=== PATIENT | female | born 1945 | race Caucasian/White ===

== ENCOUNTER 2021-12-19 05:25 | Day surgery (SDC) | payer OTHER, SELFPAY ==
[~2021-12-19] VITALS: Ht 162.6 cm; Wt 118.4 kg
[2021-12-19] MEDS ORDERED: ONDANSETRON HCL 4 MG/2 ML VIAL IVP PRN (07:30)
[2021-12-19] MEDS ORDERED: LR 1,000 ML IV SCH (07:30)
[2021-12-19] MEDS ORDERED: SIMETHICONE 40 MG/0.6 ML ML ONE (07:56)
[2021-12-19] MEDS ORDERED: fentaNYL CITRATE/PF 100 MCG/2 ML AMP ONE (11:00)
[2021-12-19] MEDS ORDERED: PROPOFOL 200MG/ 20ML VIAL (DIPRIVAN) IV ONE (11:00)
[2021-12-19 12:28] VITALS: BP_SYST 133
== END 2021-12-19 12:28 | disposition home or self-care (01) ==
LOC: SMU 05:25 → SDS 05:25
PROVIDERS: ATTEND Internal Medicine
DX: R19.5 Other fecal abnormalities (principal); D12.4 Benign neoplasm of descending colon; K57.30 Diverticulosis of large intestine without perforation or abscess without bleeding; K52.9 Noninfective gastroenteritis and colitis, unspecified; K64.8 Other hemorrhoids; E11.9 Type 2 diabetes mellitus without complications; I10 Essential (primary) hypertension; Z20.822 Contact with and (suspected) exposure to COVID-19; Z79.899 Other long term (current) drug therapy
CPT/HCPCS: 36415; 45380; 45385; 82962; 87426; 88305; 93005; 96365; G0378; J2704; J3010

== ENCOUNTER → 2021-12-27 | Outpatient (CLI) | payer OTHER, SELFPAY ==
[~2021-12-27] VITALS: Ht 162.6 cm; Wt 117.9 kg
== END | disposition home or self-care (01) ==
LOC: SLB 10:00 → EDSTATUS 12-31 10:45
PROVIDERS: ATTEND Colon & Rectal Surgery
DX: Z01.812 Encounter for preprocedural laboratory examination (principal); Z20.822 Contact with and (suspected) exposure to COVID-19; D05.10 Intraductal carcinoma in situ of unspecified breast
CPT/HCPCS: U0003

== ENCOUNTER 2022-05-31 10:37 | Inpatient (IN) | payer OTHER ==
[~2022-05-31] VITALS: Ht 162.6 cm; Wt 108.9 kg
[2022-05-31 11:48] VITALS: BP_SYST 126
--- NOTE | 2022-05-31 11:56 | NUR ---
BIB FAMILY WITH C/C OF ABNORMAL LAB VALUES. PT SENT OVER FROM DR. DE ANDA'S OFFICE, BUT HAS NO DOCUMENT OF WHAT LAB. HX OF RENAL DISEASE STG 4, NOT ON HD. REPORTS ABDOMINAL PAIN 10/10 WORSE WITH EATING. DENIES ANY NAUSEA. PLACED IN BED 7. INFORMED DR. DEAL.
[2022-05-31 13:15] LABS: BASOPHILS % (AUTO) 0.6 % (0.0-2.0); EOSINOPHILS # (AUTO) 0.1 K/uL (0.0-0.4); EOSINOPHILS % (AUTO) 1.4 % (0.0-4.0); HEMATOCRIT 22.1 % (36-48); HEMOGLOBIN 7.1 g/dL (12.0-16.0); LYMPHOCYTES # (AUTO) 0.9 K/uL (1.0-5.5); LYMPHOCYTES % (AUTO) 11.4 % (20.5-51.5); MEAN CORPUSCULAR HEMOGLOBIN 26 pg (27-31); MEAN CORPUSCULAR HGB CONC 32 % (32-36); MEAN CORPUSCULAR VOLUME 81 fL (79.0-98.0); MONOCYTES # (AUTO) 0.5 K/uL (0.0-1.0); MONOCYTES % (AUTO) 6.9 % (1.7-9.3); NEUTROPHILS % (AUTO) 79.7 % (40.0-70.0); PLATELET COUNT (AUTO) 170 K/uL (130-430); RED BLOOD CELL COUNT(AUTO) 2.74 MIL/uL (4.2-6.2); RED CELL DISTRIBUTION WIDTH 17.3 % (9.0-15.0); WHITE BLOOD COUNT (AUTO) 7.5 K/uL (4.8-10.8)
[2022-05-31 13:45] LABS: ANION GAP 11 (5-15); CALCIUM 8.8 mg/dL (8.4-11.0); CHLORIDE 107 mmol/L (98-107); GLUCOSE 163 mg/dL (70-99); POTASSIUM 5.2 mmol/L (3.5-5.1); SODIUM SERUM 138 mmol/L (136-145); UREA NITROGEN, BLOOD 70 mg/dL (8-21)
[2022-05-31 13:51] LABS: ALANINE AMINOTRANSFERASE 34 U/L (12-78); ALBUMIN 2.6 g/dL (3.4-4.8); ASPARTATE AMINOTRANSFERASE 31 U/L (10-37); TOTAL BILIRUBIN 0.4 mg/dL (0.0-1.0)
[2022-05-31 13:59] LABS: INR 1.1 (0.8-1.2); PROTHROMBIN TIME 11.4 SECS (9.5-12.5)
[2022-05-31 16:59] LABS: LIPASE 119 U/L (73-393)
[2022-05-31] MEDS ORDERED: MORPHINE 2 MG/ML INJ. SYRINGE IVP ONE (17:15)
[2022-05-31] MEDS ORDERED: AMIO100T4 PO (17:32)
[2022-05-31] MEDS ORDERED: APIX5TAB PO (17:32)
[2022-05-31] MEDS ORDERED: BUME1TAB8 PO (17:32)
[2022-05-31] MEDS ORDERED: POTA8TAB66 PO (17:32)
[2022-05-31] MEDS ORDERED: AMIO200T66 PO (17:38)
[2022-05-31] MEDS ORDERED: LOSA100T23 PO (17:38)
[2022-05-31] MEDS ORDERED: LEVO75CA5 PO (17:38)
[2022-05-31] MEDS ORDERED: FUROSEMIDE 40 MG/4 ML VIAL IVP ONE ×2 (17:45→18:00)
--- NOTE | 2022-05-31 18:24 | NUR ---
Gave pt. Cardio Diet tray for dinner.
[2022-05-31] MEDS ORDERED: MORPHINE 4 MG INJ. 4 MG/ML VIAL IVP ONE (18:45)
--- NOTE | 2022-05-31 19:34 | NUR ---
PT ENDORSED TO TONI MEDEIROS. ALL QUESTIONS AND CONCERNS ADDRESSED. INFORMED HER PT HAS ONE UNIT PRBC ORDERED TO GIVE.
[2022-05-31] MEDS ORDERED: BACI1CAP PO (20:03)
[2022-05-31] MEDS ORDERED: ALPR1TAB2 PO (20:03)
[2022-05-31] MEDS ORDERED: GLIP10TA11 PO (20:03)
[2022-05-31] MEDS ORDERED: [UNRECOGNIZED DRUG - CODE] PO (20:03)
--- NOTE | 2022-05-31 20:35 | NUR ---
Recieved patient . Vital signs : BP: 163/71. SaO2: 95% . RR:19. HR: 86. Temp: 97 . Awake, Alert and oriented x4.Daughter is at bedside. Patient is awaiting blood transfusion and admission.
--- NOTE | 2022-05-31 22:25 | NUR ---
pt is a new admit from the ED. admitted to the tele unit for fluid overload and anemia. pt arrived to the unit alert, awake and stable with daughter at bedside. 1 unit of PRBC's was transfusion while pt arrive to the unit. pt has no s/s of reaction from the transfusion at this time. vitals taken b/p 144/77 hr 86 resp 19 temp 97.8 02 97% RA. PT HAS NO C/O pain or distress noted at this time. educate pt to room and how to use call light. bed alarm on and place bed to lowest position.
--- NOTE | 2022-05-31 22:47 | NUR ---
Patient given written and verbal discharge instructions and verbalizes understanding. ER MD discussed with patient the results and treatment provided. Patient in stable condition. . IV catheter removed intact and dressing applied, no active bleeding. Rx of given. Patient educated on pain management and to follow up with PMD. Pain Scale . PT CURRENTLY ON 1 UNIT PRBC TRANSFUSION. Opportunity for questions provided and answered. Medication side effect fact sheet provided. REPORT GIVEN TO DENIS
[2022-05-31] MEDS: MORPHINE 4 MG INJ. 4 MG/ML VIAL IVP PRN (23:46)
[2022-06-01 00:26] VITALS: BP_SYST 144
[2022-06-01] MEDS ORDERED: IBUPROFEN PO SCH (01:15)
[2022-06-01] MEDS ORDERED: HYDROCODONE PO SCH (01:15)
[2022-06-01] MEDS ORDERED: ALPRAZolam 0.25 MG TABLET PO SCH (01:15)
--- NOTE | 2022-06-01 01:19 | NUR ---
1st unit of prbcs completed pt tolerated transfusion well. no s/s of any reaction noted at this time. vitals within normal limits.
[2022-06-01] MEDS: MORPHINE 4 MG INJ. 4 MG/ML VIAL IVP PRN ×5 (04:15→23:11)
[2022-06-01 07:00] VITALS: BP_SYST 166
[2022-06-01 08:00] VITALS: BP_SYST 166
[2022-06-01] MEDS: BUMETANIDE 1 MG TABLET PO SCH (08:31)
[2022-06-01] MEDS: POTASSIUM CHLORIDE 8 MEQ TABLET.SA PO SCH (08:41)
[2022-06-01] MEDS ORDERED: AMIODARONE HCL 200 MG TABLET PO SCH (09:00)
[2022-06-01 09:07] LABS: ANION GAP 11 (5-15); CALCIUM 8.8 mg/dL (8.4-11.0); CHLORIDE 107 mmol/L (98-107); GLUCOSE 130 mg/dL (70-99); POTASSIUM 4.7 mmol/L (3.5-5.1); SODIUM SERUM 140 mmol/L (136-145); UREA NITROGEN, BLOOD 67 mg/dL (8-21)
[2022-06-01 09:08] LABS: BASOPHILS % (AUTO) 0.3 % (0.0-2.0); EOSINOPHILS # (AUTO) 0.1 K/uL (0.0-0.4); EOSINOPHILS % (AUTO) 1.5 % (0.0-4.0); HEMATOCRIT 27.8 % (36-48); HEMOGLOBIN 9.2 g/dL (12.0-16.0); LYMPHOCYTES # (AUTO) 0.9 K/uL (1.0-5.5); LYMPHOCYTES % (AUTO) 9.7 % (20.5-51.5); MEAN CORPUSCULAR HEMOGLOBIN 27 pg (27-31); MEAN CORPUSCULAR HGB CONC 33 % (32-36); MEAN CORPUSCULAR VOLUME 82 fL (79.0-98.0); MONOCYTES # (AUTO) 0.6 K/uL (0.0-1.0); MONOCYTES % (AUTO) 6.7 % (1.7-9.3); NEUTROPHILS # (AUTO) 7.4 K/uL (1.8-7.7); NEUTROPHILS % (AUTO) 81.8 % (40.0-70.0); PLATELET COUNT (AUTO) 180 K/uL (130-430); RED BLOOD CELL COUNT(AUTO) 3.38 MIL/uL (4.2-6.2); RED CELL DISTRIBUTION WIDTH 16.4 % (9.0-15.0)
[2022-06-01 09:13] LABS: ALANINE AMINOTRANSFERASE 35 U/L (12-78); ALBUMIN 2.9 g/dL (3.4-4.8); ASPARTATE AMINOTRANSFERASE 36 U/L (10-37); TOTAL BILIRUBIN 0.5 mg/dL (0.0-1.0)
--- NOTE | 2022-06-01 11:24 | NUR ---
CONSULTATION PAGED REASON FOR CONSULTATION PANCREATIC MASS WAS CONSULT CALED?Y PERSON WHO WAS NOTIFIED:SERA CONSULTING PHYSICIAN:KAMRAN GARCIA FISCAL ACCOUNTANT SPECIALTY:GI FISCAL ACCOUNTANT PHONE NUMBER:[phone] REQUESTING PHYSICIAN:CORTEZ GAN
--- NOTE | 2022-06-01 11:27 | NUR ---
CONSULTATION PAGED REASON FOR CONSULTATION PANCREATIC MASS WAS CONSULT CALED?Y PERSON WHO WAS NOTIFIED:JANUARY CONSULTING PHYSICIAN:LY SCHAEFFER TRACK LABORER SPECIALTY:HEMATOLOGY/COSTUME DESIGN TEACHER PHONE NUMBER:[phone] REQUESTING PHYSICIAN:CORTEZ GAN
[2022-06-01] MEDS: NACL 0.9% 1,000 ML IV SCH (11:45)
[2022-06-01 12:00] VITALS: BP_SYST 122
[2022-06-01] MEDS ORDERED: LACTOBACILLUS RHAMNOSUS GG 1 CAP CAPSULE PO ONE (13:15)
[2022-06-01] MEDS: LOSARTAN POTASSIUM 50 MG TABLET (COZAAR) PO SCH (13:59)
[2022-06-01] MEDS: APIXABAN 2.5 MG TABLET PO SCH (14:00)
[2022-06-01] MEDS: LEVOTHYROXINE SODIUM 0.075 MG TABLET PO SCH (15:23)
[2022-06-01 16:00] VITALS: BP_SYST 173
[2022-06-01] MEDS ORDERED: ALPRAZolam 0.25 MG TABLET PO PRN (20:00)
[2022-06-01 20:15] VITALS: BP_SYST 161
--- NOTE | 2022-06-01 20:15 | NUR ---
Opening notes Pt AAOx4, VSS. No s/s distress noted. No c/o pain at this time. Pt/daughter Lenora updated with plan of care. They verbalized understanding. Renal USD for the AM. Pt uses bedside commode. Call light within reach. Bed low, locked, siderails up x2, pt refused bed alarm . Instructed pt to call for assistance, pt demonstrates understanding. To monitor.
--- NOTE | 2022-06-01 20:45 | NUR ---
Urine sample collected and sent to lab.
[2022-06-01 21:53] LABS: BILIRUBIN,URINE NEGATIVE (NEGATIVE); BLOOD, URINE NEGATIVE (NEGATIVE); CLARITY/URINE CLEAR (CLEAR); COLOR,URINE YELLOW (YELLOW); GLUCOSE,URINE 1+ (NEGATIVE); KETONES,URINE NEGATIVE (NEGATIVE); LEUKOCYTE ESTERASE ,URINE NEGATIVE (NEGATIVE); NITRITE, URINE NEGATIVE (NEGATIVE); PROTEIN URINE 1+ (NEGATIVE); UROBILINOGEN,URINE 0.2 (0.2-1.0)
[2022-06-01 22:25] LABS: BACTERIA,URINE FEW /HPF (None Seen); MUCUS,URINE None Seen /LPF (None Seen); RBC,URINE NONE SEEN /HPF (0-3); WBC,URINE 0-3 /HPF (0-3)
[2022-06-02] VITALS: BP_SYST 134
[2022-06-02] MEDS: NACL 0.9% 1,000 ML IV SCH ×2 (04:25→13:30)
[2022-06-02] MEDS: MORPHINE 4 MG INJ. 4 MG/ML VIAL IVP PRN ×5 (05:15→21:43)
--- NOTE | 2022-06-02 05:15 | NUR ---
Pain Pt c/o 04/14 back/abd pain. VSS. Medicated with Morphine 4mg IVP. Call light within reach. To monitor.
--- NOTE | 2022-06-02 06:05 | NUR ---
Assisted to BSC Pt alert, awake, assisted pt to chair, to commode and back to bed. Pt voided yellow urine. Stool OB pending collection. IVF infusing L. AC 20G no s/s infiltration. 0600AM meds administered as Call light within reach. Bed low, locked, siderails up x2. To endorse to AM nurse.
[2022-06-02] MEDS: LEVOTHYROXINE SODIUM 0.075 MG TABLET PO SCH (06:09)
[2022-06-02 08:00] VITALS: BP_SYST 129
--- NOTE | 2022-06-02 08:00 | NUR ---
Initial notes Alert, assisted to bedside commode. Pain is control at this time. IVF infusing well. Enc to call for help as needed. Call light wihtin reach
[2022-06-02 08:47] LABS: TOTAL IRON BIND. CAPACITY 272 ug/dL (250-450)
[2022-06-02] MEDS: APIXABAN 2.5 MG TABLET PO SCH (09:00)
[2022-06-02] MEDS: BUMETANIDE 1 MG TABLET PO SCH (09:18)
[2022-06-02] MEDS: LACTOBACILLUS RHAMNOSUS GG 1 CAP CAPSULE PO SCH (09:19)
[2022-06-02] MEDS: POTASSIUM CHLORIDE 8 MEQ TABLET.SA PO SCH (09:19)
[2022-06-02] MEDS: LOSARTAN POTASSIUM 50 MG TABLET (COZAAR) PO SCH (09:19)
--- NOTE | 2022-06-02 09:39 | NUR ---
Notes Complain of abdominal pain, medicated with morphine as ordered. family at bedside.
--- NOTE | 2022-06-02 10:00 | NUR ---
DELFINA- HELD FOR LIVER BIOPSY IN AM 06/03/22.
--- NOTE | 2022-06-02 11:24 | NUR ---
CONSULTATION PAGED/CALLED Reason for Consultation: [] RENAL FAILURE Person Who was Notified: [] LISA Consulting Physician: [] JOHANNA ZAMORA ESTHETICIAN FOR THE GROUP ([facility]) Lamp Developer Specialty: [] AIR TWISTER WINDER Ordering Physician: [] Cornel MIRANDA
--- NOTE | 2022-06-02 11:25 | NUR ---
CONSULTATION PAGED REASON FOR CONSULTATION:RENAL FAILURE WAS CONSULT CALLED?Y -PERSON WHO WAS NOTIFIED:LISA CONSULTING PHYSICIAN:MITALI CHAPPELL (JOHANNA HUNT BUILDING APPRAISER) WINDOW/DISTRIBUTION CLERK SPECIALTY:NEPHRO WINDOW/DISTRIBUTION CLERK PHONE NUMBER:[phone] REQUESTING PHYSICIAN:CORTEZ GAN
[2022-06-02 12:00] VITALS: BP_SYST 145
--- NOTE | 2022-06-02 13:00 | NUR ---
Notes Talking to family at bedside. No distress
[2022-06-02 16:00] VITALS: BP_SYST 138
--- NOTE | 2022-06-02 17:00 | NUR ---
BLOOD SUGAR Pt has history of Diabetes, check blood sugar and it was 265. spoke to Dr. Fountain covering for Dr. Garcia and ordered to do fingerstick and do sliding scale with regular insulin.
[2022-06-02 20:00] VITALS: BP_SYST 152
--- NOTE | 2022-06-02 20:05 | NUR ---
Opening notes/Consent Pt AAOx4. No s/s distress noted. Pt refused to sign consent for liver biopsy at this time. She states "I'll sign when I'm more alert". Educated pt she'll be NPO after midnight for procedure, pt verb understanding. IVF infusing on L. AC no s/s infiltration. Call light/items within reach. Bed low, locked, siderails up x2. To monitor.
--- NOTE | 2022-06-02 21:51 | NUR ---
Pain/Blood sugar check Pt c/o pain, medicated with Morphine 4mg IVP as needed. Call light/phone within reach. Bed low, locked, siderails up x2. To monitor.
[2022-06-02] MEDS: INSULIN REGULAR, HUMAN 100 UNITS/ML, 10 ML VIAL (humuLIN R) SUBCUT PRN (21:54)
[2022-06-02 23:52] VITALS: BP_SYST 133
[2022-06-03] MEDS: MORPHINE 4 MG INJ. 4 MG/ML VIAL IVP PRN ×3 (02:37→21:56)
[2022-06-03] MEDS: LEVOTHYROXINE SODIUM 0.075 MG TABLET PO SCH (06:38)
--- NOTE | 2022-06-03 06:38 | NUR ---
Closing notes Pt AAOx4, no s/s distress noted. Pt maintained NPO for liver biopsy, consent signed in chart. BS checked 123. IVF infusing at ordered rate L. FA no s/s infiltration. Pt used BSC and voided. Call light/phone within reach. Safety maintained. To endorse to AM nurse.
[2022-06-03 07:06] LABS: FERRITIN 96 ng/mL (15-150); FOLATE (FOLIC ACID) >20.0 ng/mL (>3.0)
[2022-06-03 08:45] VITALS: BP_SYST 144
[2022-06-03] MEDS: LOSARTAN POTASSIUM 50 MG TABLET (COZAAR) PO SCH (09:00)
[2022-06-03] MEDS: LACTOBACILLUS RHAMNOSUS GG 1 CAP CAPSULE PO SCH (09:00)
[2022-06-03] MEDS: POTASSIUM CHLORIDE 8 MEQ TABLET.SA PO SCH (09:00)
[2022-06-03] MEDS: APIXABAN 2.5 MG TABLET PO SCH (09:00)
[2022-06-03] MEDS: BUMETANIDE 1 MG TABLET PO SCH (09:00)
[2022-06-03] MEDS ORDERED: AMIODARONE HCL 200 MG TABLET PO SCH ×2 (09:00)
[2022-06-03 11:30] VITALS: BP_SYST 154
[2022-06-03] MEDS ORDERED: MIDAZOLAM HCL 5 MG/5 ML VIAL ONE (13:00)
[2022-06-03 16:11] LABS: ANION GAP 11 (5-15); CALCIUM 8.6 mg/dL (8.4-11.0); CHLORIDE 106 mmol/L (98-107); CREATININE 3.59 mg/dL (0.55-1.30); GLUCOSE 236 mg/dL (70-99); POTASSIUM 4.3 mmol/L (3.5-5.1); SODIUM SERUM 138 mmol/L (136-145); UREA NITROGEN, BLOOD 62 mg/dL (8-21)
[2022-06-03] MEDS: NACL 0.9% 1,000 ML IV SCH (17:56)
--- NOTE | 2022-06-03 19:50 | NUR ---
Closing notes: Pt. is AAOx4 no reports of pain at this time, pt. has a visitor at bedside. Full SBAR report given to César Chapa at bedside. Bed alarm is turned on, call light within reach, brake set, and bed is in the lowest position with bedside commode at bedside. Patient was instructed to call if needing to get out of bed and fall precautions in place.
[2022-06-03 19:53] VITALS: BP_SYST 136
[2022-06-03 19:58] VITALS: BP_SYST 136
--- NOTE | 2022-06-03 20:00 | NUR ---
Recieved report from AM nurse. Pt AAOx4, VSS. No s/s distress noted. No c/o pain at this time. Pt/ friend at bedside, understands care. Liver biopsy performed in the Am, awaiting result. Pt uses bedside commode. Call light within reach. Bed low, locked, siderails up x2, pt refused bed alarm . Instructed pt to call for assistance, pt demonstrates understanding. To monitor through the shift.
[2022-06-03] MEDS: INSULIN REGULAR, HUMAN 100 UNITS/ML, 10 ML VIAL (humuLIN R) SUBCUT PRN (21:59)
[2022-06-04 00:12] VITALS: BP_SYST 136
[2022-06-04] MEDS: MORPHINE 4 MG INJ. 4 MG/ML VIAL IVP PRN ×2 (04:09→13:57)
[2022-06-04] MEDS: LEVOTHYROXINE SODIUM 0.075 MG TABLET PO SCH (06:22)
[2022-06-04] MEDS: NACL 0.9% 1,000 ML IV SCH (06:23)
[2022-06-04] MEDS: INSULIN REGULAR, HUMAN 100 UNITS/ML, 10 ML VIAL (humuLIN R) SUBCUT PRN ×3 (06:23→18:12)
[2022-06-04 07:20] LABS: BASOPHILS # (AUTO) 0.1 K/uL (0.0-0.2); BASOPHILS % (AUTO) 0.6 % (0.0-2.0); EOSINOPHILS # (AUTO) 0.2 K/uL (0.0-0.4); EOSINOPHILS % (AUTO) 2.5 % (0.0-4.0); HEMATOCRIT 25.5 % (36-48); HEMOGLOBIN 8.5 g/dL (12.0-16.0); LYMPHOCYTES # (AUTO) 1.2 K/uL (1.0-5.5); LYMPHOCYTES % (AUTO) 12.8 % (20.5-51.5); MEAN CORPUSCULAR HEMOGLOBIN 28 pg (27-31); MEAN CORPUSCULAR HGB CONC 33 % (32-36); MEAN CORPUSCULAR VOLUME 84 fL (79.0-98.0); MONOCYTES # (AUTO) 0.8 K/uL (0.0-1.0); MONOCYTES % (AUTO) 8.1 % (1.7-9.3); NEUTROPHILS # (AUTO) 7.1 K/uL (1.8-7.7); PLATELET COUNT (AUTO) 130 K/uL (130-430); RED BLOOD CELL COUNT(AUTO) 3.05 MIL/uL (4.2-6.2); RED CELL DISTRIBUTION WIDTH 17.1 % (9.0-15.0); WHITE BLOOD COUNT (AUTO) 9.3 K/uL (4.8-10.8)
[2022-06-04 07:44] LABS: ALANINE AMINOTRANSFERASE 43 U/L (12-78); ALBUMIN 2.5 g/dL (3.4-4.8); ANION GAP 9 (5-15); ASPARTATE AMINOTRANSFERASE 30 U/L (10-37); CALCIUM 8.4 mg/dL (8.4-11.0); CHLORIDE 108 mmol/L (98-107); CREATININE 3.65 mg/dL (0.55-1.30); GLUCOSE 197 mg/dL (70-99); POTASSIUM 4.3 mmol/L (3.5-5.1); SODIUM SERUM 139 mmol/L (136-145); TOTAL BILIRUBIN 0.3 mg/dL (0.0-1.0); UREA NITROGEN, BLOOD 59 mg/dL (8-21)
[2022-06-04] MEDS: LACTOBACILLUS RHAMNOSUS GG 1 CAP CAPSULE PO SCH (08:35)
[2022-06-04] MEDS: LOSARTAN POTASSIUM 50 MG TABLET (COZAAR) PO SCH (08:35)
[2022-06-04] MEDS: POTASSIUM CHLORIDE 8 MEQ TABLET.SA PO SCH (08:35)
[2022-06-04] MEDS: APIXABAN 2.5 MG TABLET PO SCH (08:41)
[2022-06-04] MEDS: BUMETANIDE 1 MG TABLET PO SCH (08:49)
[2022-06-04] MEDS ORDERED: HYDR-3921 PO (17:06)
--- NOTE | 2022-06-04 18:28 | NUR ---
rn notes patient dc'd at this time. iv removed, no bleeding noted. all dc planning discussed with family and pt, understands. Nothing missing.
== END 2022-06-04 18:20 | disposition home or self-care (01) | DRG 435 ==
LOC: SED 10:37 → STU 17:59
PROVIDERS: ADMIT Internal Medicine; ATTEND Internal Medicine
PROC: 30233N1 Transfusion of Nonautologous Red Blood Cells into Peripheral Vein, Percutaneous Approach (ICD-10-PCS; principal; 2022-05-31)
PROC: 0FB03ZX Excision of Liver, Percutaneous Approach, Diagnostic (ICD-10-PCS; 2022-06-03)
DX: C78.7 Secondary malignant neoplasm of liver and intrahepatic bile duct (principal); E43 Unspecified severe protein-calorie malnutrition; C25.9 Malignant neoplasm of pancreas, unspecified; N17.9 Acute kidney failure, unspecified; R19.09 Other intra-abdominal and pelvic swelling, mass and lump; I27.20 Pulmonary hypertension, unspecified; D64.9 Anemia, unspecified; Z20.822 Contact with and (suspected) exposure to COVID-19; Z79.899 Other long term (current) drug therapy; I48.91 Unspecified atrial fibrillation; Z85.3 Personal history of malignant neoplasm of breast; E11.22 Type 2 diabetes mellitus with diabetic chronic kidney disease; I12.9 Hypertensive chronic kidney disease with stage 1 through stage 4 chronic kidney disease, or unspecified chronic kidney disease; E86.0 Dehydration; E87.5 Hyperkalemia; E66.01 Morbid (severe) obesity due to excess calories; N18.32 Chronic kidney disease, stage 3b; K74.60 Unspecified cirrhosis of liver
CPT/HCPCS: 36415; 36430; 47000; 71045; 76376; 76770; 80048; 80053; 81000; 82607; 82728; 82746; 82962; 83540; 83550; 83690; 84156; 84166; 84302; 84484; 85025; 85044; 85610-TC; 85730-TC; 86301; 86886; 86900; 86901; 86920; 88307; 88313; 88341; 88342; 93005; 96374; 96376; 99291; G0378; J1815; J1940; J2250; J2270; P9021